=== PATIENT | female | born 1980 | race Caucasian/White ===

== ENCOUNTER 2022-08-27 06:00 | Day surgery (SDC) | payer BC ==
[~2022-08-27] VITALS: Ht 170.2 cm; Wt 59.0 kg
[2022-08-27] MEDS ORDERED: ONDANSETRON HCL 4 MG/2 ML VIAL IVP PRN ×2 (08:15→09:15)
[2022-08-27] MEDS ORDERED: HYDROmorphone 1 MG/ML INJ. CARTRIDGE IVP PRN ×2 (08:15)
[2022-08-27] MEDS ORDERED: HYDROmorphone 2 MG/ML VIAL IVP PRN (08:15)
[2022-08-27] MEDS ORDERED: HYDROcodone/ACETAMIN 5-325 MG TAB (NORCO/ VICODIN) PO PRN (09:15)
[2022-08-27] MEDS ORDERED: OXYCODONE/ACETAMINOPHEN 5-325 TABLET PO PRN ×2 (09:15)
[2022-08-27] MEDS ORDERED: PROPOFOL 200MG/ 20ML VIAL (DIPRIVAN) IV ONE (09:19)
[2022-08-27] MEDS ORDERED: LR 1,000 ML IV.SOLN IV ONE (09:19)
[2022-08-27] MEDS ORDERED: NS IRRIG SOLN 1000 ML IR ONE (09:19)
[2022-08-27] MEDS ORDERED: SUCCINYLCHOLINE CHLORIDE 20 MG/ML(QUELICIN) ONE (09:19)
[2022-08-27] MEDS ORDERED: METOCLOPRAMIDE HCL 10 MG/2 ML VIAL ONE (09:19)
[2022-08-27] MEDS ORDERED: KETOROLAC TROMETHAMINE 30 MG VIAL ONE (09:19)
[2022-08-27] MEDS ORDERED: DESFLURANE 15 MIN GAS INH ONE (09:19)
[2022-08-27] MEDS ORDERED: HYDROmorphone 2 MG/ML VIAL ONE (09:19)
[2022-08-27] MEDS ORDERED: ROCURONIUM BROMIDE 10 MG/ML (ZEMURON) ONE (09:19)
[2022-08-27] MEDS ORDERED: ONDANSETRON HCL 4 MG/2 ML VIAL ONE ×2 (09:19→12:36)
[2022-08-27] MEDS ORDERED: fentaNYL CITRATE/PF 100 MCG/2 ML AMP ONE (09:19)
[2022-08-27] MEDS ORDERED: SUGAMMADEX SODIUM 200 MG/2 ML VIAL IV ONE (09:19)
[2022-08-27] MEDS ORDERED: DEXAMETHASONE SOD PHOSPHATE 4 MG/ML VIAL ONE (09:19)
[2022-08-27] MEDS ORDERED: NS 1000 ML IV.SOLN IV ONE (09:19)
[2022-08-27 15:02] VITALS: BP_SYST 111
== END 2022-08-27 15:44 | disposition home or self-care (01) ==
LOC: SMU 06:00 → SDS 06:00
PROVIDERS: ATTEND Specialist
DX: N92.6 Irregular menstruation, unspecified (principal); N83.291 Other ovarian cyst, right side; N83.202 Unspecified ovarian cyst, left side; N84.0 Polyp of corpus uteri; N94.6 Dysmenorrhea, unspecified; Z79.899 Other long term (current) drug therapy; Z98.890 Other specified postprocedural states
CPT/HCPCS: 87081; 58558; 58662; 82962; 88305; J3490; J1100; J1885; J2765; J2405; J2704; J0330; J3010; J1170; J7120; J7030; C1727